=== PATIENT | female | born 1975 | race Caucasian/White ===

== ENCOUNTER 2017-08-19 08:20 | Outpatient (CLI) | payer OTHER ==
--- NOTE | 2017-08-19 09:34 | RAD ---
PA AND LATERAL CHEST: Indication: History of asthma. Comparison: Single view, 11-01-12 FINDINGS: Lungs are clear. Cardiomediastinal silhouette is normal. No acute osseous abnormality is evident. IMPRESSION: No acute cardiopulmonary abnormality. POS: SURESHH
== END 2017-08-19 08:21 | disposition home or self-care (01) ==
LOC: RAD-FRANK 08:20
PROVIDERS: ATTEND Nurse Practitioner Family
DX: J45.901 Unspecified asthma with (acute) exacerbation (principal)
CPT/HCPCS: 71046

== ENCOUNTER 2018-08-25 09:14 | Outpatient (CLI) | payer OTHER ==
--- NOTE | 2018-08-25 10:28 | RAD ---
PA AND LATERAL CHEST: HISTORY: Cough. COMPARISON: 08/19/2017 FINDINGS: The heart size is borderline. The lungs are well expanded without focal areas of consolidation, pneu mothoraces, or pleural effusions. No acute osseous abnormalities are seen. IMPRESSION: No radiographic evidence of acute cardiopulmonary process. POS: C
== END 2018-08-25 09:15 | disposition home or self-care (01) ==
LOC: RAD-FRANK 09:14
PROVIDERS: ATTEND Nurse Practitioner Family
DX: R09.81 Nasal congestion (principal)
CPT/HCPCS: 71046

== ENCOUNTER 2019-09-09 13:47 | Emergency (ER) | payer SELFPAY ==
--- NOTE | 2019-09-09 15:50 | RAD ---
3 views of sacrum and coccyx: 09/09/2019 COMPARISON: None HISTORY: Tailbone pain for 2 months, no history of injury FINDINGS: No widening of the sacroiliac joints or pubic symphysis. Pelvic ring appears intact. No dis placed fracture. IMPRESSION: No acute osseous abnormality.
== END 2019-09-09 16:22 | disposition home or self-care (01) ==
LOC: ERS 13:47
DX: L05.91 Pilonidal cyst without abscess (principal); I10 Essential (primary) hypertension; J45.909 Unspecified asthma, uncomplicated; F41.9 Anxiety disorder, unspecified; F32.9 Major depressive disorder, single episode, unspecified; Z79.899 Other long term (current) drug therapy
CPT/HCPCS: 72220

== ENCOUNTER 2020-05-07 17:57 | Emergency (ER) | payer SELFPAY ==
[2020-05-07 19:37] LABS: Bilirubin Negative (Negative); Blood, Urine Negative (Negative); Clarity Clear (Clear); Glucose, Urine (Dipstick) Normal (Negative); Ketone, Urine Negative (Negative); Leukocyte Negative Leu/uL (Negative); Nitrite Negative (Negative); Protein, Urine (Dipstick) Negative (Neg-Trace); Specific Gravity, Urine 1.014 (1.002-1.036); Urobilinogen Normal mg/dL (Less than 2)
[2020-05-07 19:51] LABS: #Basophils 0.1 thou/uL (0.0-0.2); #Eosinphils 0.1 thou/uL (0.0-0.7); #Lymphocytes 3.5 thou/uL (1.20-3.40); #Monocytes 0.6 thou/uL (0.11-0.59); #Neutrophils 6.4 thou/uL (1.40-6.50); %Basophils 0.6 % (0.0-1.0); %Eosinophils 1.2 % (0.0-10.0); %Lymphocytes 32.7 % (21.0-51.0); %Monocytes 5.8 % (0.0-10.0); %Neutrophils 59.7 % (42.0-75.0); Hemoglobin 14.5 g/dL (12.0-16.0); Mean Corpuscular HGB CONC 34.5 g/dL (32.0-36.0); Mean Corpuscular Hemoglobin 31.4 pg (27.0-31.0); Mean Platelet Volume 7.9 fL (7.4-10.4); Platelet Count 382 thou/uL (130-400); RBC Distribution Width 12.7 % (11.5-14.5); Red Blood Cell (RBC) Count 4.63 mill/uL (4.20-5.40); White Blood Cell (WBC) Count 10.7 thou/uL (4.8-10.8)
--- NOTE | 2020-05-07 20:04 | RAD ---
KUB AND UPRIGHT: 05/07/20 HISTORY: Abdominal pain. Bowel gas pattern appears nonobstructed. No free air. No radiopaque calculi or any significant bony f indings. IMPRESSION: No acute findings. POS: TEE
[2020-05-07 20:13] LABS: ALT (SGPT) 47 U/L (8-55); AST (SGOT) 32 U/L (5-34); Albumin 4.2 g/dL (3.5-5.0); Alkaline Phosphatase 96 U/L (40-110); Anion Gap 14 mmol/L (10-20); BUN (Urea Nitrogen) 12 mg/dL (7.0-18.7); Bilirubin, Total 0.3 mg/dL (0.2-1.2); Calcium 9.8 mg/dL (7.8-10.44); Carbon Dioxide 29 mmol/L (22-29); Chloride 100 mmol/L (98-107); Globulin 2.9 g/dL (2.4-3.5); Glucose 117 mg/dL (70-105); Potassium 3.6 mmol/L (3.5-5.1); Protein, Total 7.1 g/dL (6.0-8.3); Sodium 139 mmol/L (136-145)
[2020-05-07] MEDS ORDERED: Glycerin Liquid Pediatric Supp. 4 ml ONE (20:14)
[2020-05-07 20:15] LABS: Calc. Creatinine Clearance 0 mL/min (70-130); Estimated GFR-MDRD 69
[2020-05-07] MEDS ORDERED: Glycerin Adult Supp. (12 ct jar) RC SCH (20:30)
[2020-05-07] MEDS ORDERED: Fleet Enema 133 ML BOT FS SCH (20:45)
== END 2020-05-07 22:13 | disposition home or self-care (01) ==
LOC: ERS 17:57
DX: K59.00 Constipation, unspecified (principal); I10 Essential (primary) hypertension; J45.909 Unspecified asthma, uncomplicated; F41.9 Anxiety disorder, unspecified; F32.9 Major depressive disorder, single episode, unspecified; Z79.899 Other long term (current) drug therapy
CPT/HCPCS: 36415; 74019; 80053; 81003; 85025

== ENCOUNTER 2020-05-22 10:57 | Outpatient (CLI) | payer OTHER ==
--- NOTE | 2020-05-22 11:53 | CT ---
CT OF THE PELVIS WITH IV CONTRAST INDICATION: History of colonoscopy, possible mass or abscess. COMPARISON: None FINDINGS: Pelvis: There is a mild amount of retained stool within the visualized colon. No overt mass is seen within t he lower pelvis. The cecal does extend into the lower midline pelvis. The uterus is surgically absent. The adnexa are not seen and presumed to be surgically absent. The visualized bladder is parti ally decompressed. No lymphadenopathy is evident. There is a normal appendix in the lower pelvis. There is a supraumbilical and umbilical fat-containing abdominal wall hernia. No free fluid or lympha denopathy is evident. There is scattered degenerative and osteoarthritic change present. IMPRESSION: No acute abnormality. No pelvic mass identified. Transcribed Date/Time: 05/22/2020 12:39 PM
[2020-05-22] MEDS ORDERED: Iopamidol 370 76% 100 ML VIAL ONE (14:15)
== END 2020-05-22 10:58 | disposition home or self-care (01) ==
LOC: CT 10:57
PROVIDERS: ATTEND Internal Medicine Gastroenterology
DX: K64.9 Unspecified hemorrhoids (principal); K59.00 Constipation, unspecified; R29.898 Other symptoms and signs involving the musculoskeletal system
CPT/HCPCS: 72193; Q9967